=== PATIENT | female | born 1980 | race Caucasian/White ===

== ENCOUNTER 2018-09-08 21:14 | Emergency (ER) | payer SELFPAY ==
[~2018-09-08] VITALS: Ht 165.1 cm; Wt 59.0 kg
[2018-09-08] MEDS ORDERED: ONDANSETRON HCL 4MG/2ML INJ IV STA (23:21)
[2018-09-08] MEDS ORDERED: SODIUM CHLORIDE 0.9% 1,000 ML IV ONE (23:21)
[2018-09-08] MEDS ORDERED: MORPHINE SULFATE 4 MG/ML CPJ (NOT FOR IM USE) IV STA (23:21)
[2018-09-08] MEDS ORDERED: FAMOTIDINE 20MG/2ML VIAL IV STA (23:21)
[2018-09-08 23:53] LABS: BASOPHILS % 0.2 % (0.0-2.0); EOSINOPHILS % 0.1 % (0.0-5.0); HEMATOCRIT. 35.2 % (36.0-48.0); HEMOGLOBIN. 12.2 g/dL (12.0-16.0); LYMPHOCYTES % 10.8 % (20.0-50.0); MEAN CORPUSCULAR VOLUME 86.9 fL (81.0-99.0); MEAN PLATELET VOLUME 7.5 fl (7.4-10.4); MONOCYTES % 2.6 % (2.0-8.0); NEUTROPHILS % 86.3 % (40.0-76.0); PLATELET 300 x1000/uL (130-400); RED BLOOD CELL COUNT 4.06 mill/uL (4.2-5.4); RED CELL DISTRIBUTION WIDTH 12.9 % (11.6-14.6)
[2018-09-08 23:54] LABS: PROTHROMBIN TIME 10.4 sec (9.1-11.1)
[2018-09-08 23:57] LABS: CHLORIDE 107 mEq/L (98-107); ETHANOL BLOOD < 10 mg/dL
[2018-09-08 23:58] LABS: HCG SCREEN NEGATIVE
[2018-09-09 01:56] LABS: CLARITY URINE CLEAR (CLEAR); COLOR URINE YELLOW (YELLOW); KETONES URINE 1+ (NEGATIVE); LEUKOCYTE ESTERASE URINE 1+ (NEGATIVE); NITRITE URINE POSITIVE (NEGATIVE); OCCULT BLOOD URINE 1+ (NEGATIVE); PROTEIN URINE TRACE (NEGATIVE); SPECIFIC GRAVITY URINE 1.024 (1.005-1.030); UROBILINOGEN URINE 0.2 E.U./dL (0.2-1.0)
[2018-09-09 02:52] VITALS: BP 99/61
== END 2018-09-09 02:56 | disposition home or self-care (01) ==
LOC: ER 21:14
DX: K29.70 Gastritis, unspecified, without bleeding (principal); R62.50 Unspecified lack of expected normal physiological development in childhood
CPT/HCPCS: 36415; 74176; 80053; 81003; 83690; 84484; 84703; 85025; 85610; 87077; 87086; 87186; 96361; 96374; 96375; 99285; G0482; J2270; J2405; J3490; J7030; Z7610

== ENCOUNTER 2018-12-26 14:00 | Emergency (ER) | payer MEDICAID ==
[~2018-12-26] VITALS: Ht 165.1 cm; Wt 64.0 kg
[2018-12-26] MEDS ORDERED: KETOROLAC 60MG/2ML VIAL IM ONE (16:15)
[2018-12-26 16:54] VITALS: BP 110/72
== END 2018-12-26 19:29 | disposition home or self-care (01) ==
LOC: ER 14:25
DX: M25.511 Pain in right shoulder (principal); M25.551 Pain in right hip
CPT/HCPCS: 73030; 73502; 81025; 96372; 99283; J1885

== ENCOUNTER 2019-06-02 11:33 | Emergency (ER) | payer MEDICAID, OTHER ==
[~2019-06-02] VITALS: Ht 157.5 cm; Wt 60.0 kg
[2019-06-02 15:34] VITALS: BP 107/56
== END 2019-06-02 15:34 | disposition home or self-care (01) ==
LOC: ER 11:33
DX: L02.811 Cutaneous abscess of head [any part, except face] (principal)
CPT/HCPCS: 99283

== ENCOUNTER 2019-12-13 12:14 | Emergency (ER) | payer OTHER ==
[~2019-12-13] VITALS: Ht 152.4 cm; Wt 64.0 kg
[2019-12-13] MEDS ORDERED: CEPHALEXIN 250MG CAPSULE PO ONE (14:15)
[2019-12-13] MEDS ORDERED: IBUPROFEN 600MG TABLET PO ONE (14:15)
[2019-12-13] MEDS ORDERED: TETANUS, DIPHTHERIA, PERTUSSIS VAC/PF 0.5ML (>7YR OLD) IM ONE (14:15)
[2019-12-13 14:37] VITALS: BP 110/71
== END 2019-12-13 14:38 | disposition home or self-care (01) ==
LOC: ER 12:49
DX: S61.210A Laceration without foreign body of right index finger without damage to nail, initial encounter (principal); G80.9 Cerebral palsy, unspecified; W45.8XXA Other foreign body or object entering through skin, initial encounter; Y93.89 Activity, other specified; Y92.89 Other specified places as the place of occurrence of the external cause; Y99.8 Other external cause status
CPT/HCPCS: 29130; 73140; 90471; 90715; 99283; Z7610